=== PATIENT | male | born 1940 | race Caucasian/White ===

== ENCOUNTER 2017-04-18 15:03 | Emergency (ER) | payer MEDICARE ==
--- NOTE | 2017-04-18 18:18 | Emergency Department Record ---
History of Present Illness - General Chief Complaint: Numbness Stated Complaint: LEG PAIN RT LEG NUMB Time Seen by Provider: 04/18/17 17:46 Source: Patient, Family Mode of Arrival: Ambulatory Limitations: No limitations - History of Present Illness Initial Comments: pt has had a cold white foot and a painful numb leg for 3 days. he has fallen twice because of it. he has stents in both legs that dr klein put in 10 yrs ago and had a repeat surgery 1 yr ago that he says didnt do so well and now the foot has become cold. pt states he had severe pain in the calf a few days ago which he felt could have been a blood clot [though he thought it was a charley horse initially] so he massaged it vigorously. Onset/Timin -: Days(s) Location: Right leg History of same: Yes Place: Home Severity: Moderate Quality: Constant, Numb, Tingling, Weak Improves With: None Worsens With: Time On Anticoagulants: No Context: Gradual onset Associated Symptoms: Weakness Treatments Prior to Arrival: None - Ona Coma Scale Eye Response: (4) Open spontaneously Motor Response: (6) Obeys commands Verbal Response: (5) Oriented Janel Total: 15 - Symptoms of Stroke Onset of Symptoms Date: 04/15/17 Symptom Onset Unknown: No Symptoms of stroke: Unsteady When Walking - Related Data Home Medications: Previous Rx's Medication Instructions Recorded Hydrocodone/Acetaminophen [[facility] 1 - 2 each PO QID #20 tablet 01/20/15 5-325 Tablet] Allergies/Adverse Reactions: Allergies Allergy/AdvReac Type Severity Reaction Status Date / Time No Known Drug Allergies Allergy Verified 04/18/17 17:26 Travel Screening - Travel/Exposure Within Last 30 Days Have you traveled within the last 30 days?: No - Travel/Exposure Within Last Year Have you traveled outside the [place] in the last year?: No - Additonal Travel Details Have you been exposed to anyone with a communicable illness?: No - Travel Symptoms Symptom Screening: None Review of Systems Reviewed: No additional complaints except as noted below Constitutional: Reports: As per HPI. Denies: Chills, Fever, Malaise, Night sweats, Weakness, Weight change Eyes: Reports: As per HPI. Denies: Eye discharge, Eye pain, Photophobia, Vision change ENT: Reports: As per HPI. Denies: Congestion, Dental pain, Ear pain, Epistaxis , Hearing loss, Throat pain Respiratory: Reports: As per HPI. Denies: Cough, Dyspnea, Hemoptysis, Stridor, Wheezes Cardiovascular: Reports: As per HPI, Other. Denies: Arrhythmia, Chest pain, Dyspnea on exertion, Edema, Murmurs, Orthopnea, Palpitations, Paroxysmal nocturnal dyspnea, Rheumatic Fever, Syncope Endocrine: Reports: As per HPI. Denies: Fatigue, Heat or cold intolerance, Polydipsia, Polyuria Gastrointestinal: Reports: As per HPI. Denies: Abdominal pain, Constipation, Diarrhea, Hematemesis, Hematochezia, Melena, Nausea, Vomiting Genitourinary: Reports: As per HPI. Denies: Dysuria, Frequency, Hematuria, Incontinence, Retention, Testicular pain, Testicular mass, Urgency Musculoskeletal: Reports: As per HPI. Denies: Arthralgia, Back pain, Gout, Joint swelling, Myalgia, Neck pain Skin: Reports: As per HPI. Denies: Bruising, Change in color, Change in hair/ nails, Lesions, Pruritus, Rash Neurological: Reports: As per HPI. Denies: Abnormal gait, Confusion, Headache, Numbness, Paresthesias, Seizure, Tingling, Tremors, Vertigo, Weakness Psychiatric: Reports: As per HPI. Denies: Anxiety, Auditory hallucinations, Depression, Homicidal thoughts, Suicidal thoughts, Visual hallucinations Hematological/Lymphatic: Reports: As per HPI. 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, now diet controlled) - MUSCULOSKELETAL Hx Musculoskeletal Disorders: No - PSYCH Hx Psych Problems: No - HEMATOLOGY/ONCOLOGY Hx Hematology/Oncology Disorders: Yes Hx Cancer: Yes (hx (throat malignant)) Family Medical History Any Significant Family History?: Yes Hx Cancer: Mother Hx Kidney Disease: Father Hx Stroke: Mother Physical Exam - General General Appearance: Alert, Oriented x3, Cooperative, Mild distress - Head Head exam: Normal inspection - Eye Eye exam: Normal appearance, PERRL, EOMI Pupils: Normal accommodation - ENT ENT exam: Normal exam, Mucous membranes moist, Normal external ear exam, Normal orophraynx Ear exam: Normal external inspection. negative: External canal tenderness Nasal Exam: Normal inspection. negative: Discharge, Sinus tenderness Mouth exam: Normal external inspection, Tongue normal Teeth exam: Normal inspection. negative: Dental caries Throat exam: Normal inspection. negative: Tonsillar erythema, Tonsillar exudate - Neck Neck exam: Normal inspection, Full ROM. negative: Tenderness - Respiratory Respiratory exam: Normal lung sounds bilaterally. negative: Respiratory distress - Cardiovascular Cardiovascular Exam: Regular rate, Normal rhythm, Normal heart sounds Peripheral Pulses: 0: Dorsalis Pedis (R), 2+: Dorsalis Pedis (L) - GI/Abdominal GI/Abdominal exam: Soft, Normal bowel sounds. negative: Tenderness - Rectal Rectal exam: Deferred - exam: Deferred - Extremities Extremities exam: Normal inspection, Full ROM, Normal capillary refill. negative: Tenderness - Back Back exam: Reports: Normal inspection, Full ROM. Denies: Muscle spasm, Rash noted, Tenderness - Neurological Neurological exam: Alert, CN II-XII intact, Normal gait, Oriented X3 - Psychiatric Psychiatric exam: Normal affect, Normal mood - Skin Skin exam: Dry, Intact, Normal color, Warm Course Vital Signs 04/18/17 17:12 Pulse Rate 83 Respiratory 17 Rate Blood Pressure 164/92 Pulse Ox 98 Disposition Disposition: Transfer Clinical Impression: Vascular insufficiency of extremity Disposition: Acute Care Hospital Transfer Transfer To: [facility] Reason For Transfer: vascular insufficiency, cold numb whitish foot Accepting Physician: dr cortez Time Discussed w/Accepting Physician: 18:25 Quality - Quality Measures Quality Measures: N/A - Blood Pressure Screening Does Patient Have Any of the Following: Active Dx of HTN Blood Pressure Classification: Hypertensive Reading Systolic Measurement: 164 Diastolic Measurement: 92 Screening for High Blood Pressure: Patient Exclusion, Hx of HTN [[id number]]
== END 2017-04-18 19:00 | disposition short-term general hospital (02) ==
LOC: ER 15:03
DX: I73.9 Peripheral vascular disease, unspecified (principal); R20.0 Anesthesia of skin; I10 Essential (primary) hypertension; E11.9 Type 2 diabetes mellitus without complications
CPT/HCPCS: 99285